=== PATIENT | female | born 1975 | race Caucasian/White ===

== ENCOUNTER 2017-03-19 10:32 | Emergency (ER) | payer OTHER ==
[~2017-03-19] VITALS: Ht 175.3 cm; Wt 102.1 kg
[~2017-03-19 10:32] MED LIST: NOHOMEMEDICATIONS; NORCO 5-325 TA1 EACH PO; PHENERGAN25 MG RECTAL; PRILOSEC40 MG PO; VICODIN 5-5001 EACH PO
[2017-03-19] MEDS ORDERED: OXYCODONE-ACET1 EACH PO (11:31)
[2017-03-19] MEDS ORDERED: BENAZEPRIL HCL40 MG PO (11:32)
[2017-03-19] MEDS ORDERED: ATIVAN1 MG PO (11:33)
[2017-03-19] MEDS ORDERED: BENTYL 10 MG CA10 M1 PO (11:33)
[2017-03-19] MEDS ORDERED: REGLAN 10 MG TA10 MG PO (11:33)
[2017-03-19 11:45] LABS: ABSOLUTE NEUTROPHILS 4.9 thou/uL (1.4-8.2); BASOPHILS 0.5 % (0.0-2.0); EOSINOPHILS 1.4 % (0.0-3.0); HEMATOCRIT 35.4 % (37.0-47.0); HEMOGLOBIN 11.6 gm/dL (12.0-15.0); LYMPHOCYTES 20.4 % (24.0-44.0); MANUAL DIFF NO; MCH 27.4 pg (26.0-34.0); MCHC 32.7 g/dL (28.0-37.0); MCV 83.9 fL (80.0-100.0); MONOCYTES 3.9 % (1.0-8.0); PLATELET COUNT 260 thou/uL (150-400); POLYS 73.8 % (36.0-66.0); RBC 4.22 mil/uL (4.20-5.00); RDW 15.7 % (10.5-14.5); WBC 6.7 thou/uL (4.0-11.0)
[2017-03-19 11:56] LABS: CALCIUM 8.5 mg/dL (8.5-10.1); CREATININE 1.1 mg/dL (0.6-1.0); POTASSIUM 3.9 mmol/L (3.5-5.1)
[2017-03-19 12:00] LABS: ALBUMIN 3.3 g/dL (3.4-5.0); DIRECT BILIRUBIN 0.1 mg/dL (<0.1-0.3); TOTAL BILIRUBIN 0.5 mg/dL (<0.1-1.0); TOTAL PROTEIN 7.1 g/dL (6.4-8.2)
[2017-03-19] MEDS ORDERED: CARAFATE 1 GM TA1 G1 PO (13:08)
[2017-03-19 13:16] VITALS: BP 111/63
== END 2017-03-19 14:58 | disposition home or self-care (01) ==
LOC: ER 10:32
PROVIDERS: Emergency Medicine
DX: R10.11 Right upper quadrant pain (principal); Z98.890 Other specified postprocedural states; Z88.5 Allergy status to narcotic agent; Z88.2 Allergy status to sulfonamides